=== PATIENT | female | born 1940 | race Caucasian/White ===

== ENCOUNTER 2024-09-14 06:03 | Inpatient (IN) | payer OTHER, SELFPAY ==
[2024-08-18 14:28] VITALS: BMI 30.9
[2024-08-18 15:04] LABS: Hematocrit 40.1 % (37.0-47.0); Hemoglobin 13.3 g/dL (12.0-16.0); Mean Corp Hgb Conc. 33.2 g/dL (33.0-37.0); Mean Corpuscular Volume 93.5 fL (81.0-99.0); Mean Platelet Volume 10.8 fL (7.4-10.4); Platelet Count 206 10^3/uL (130-400); Red Blood Cell Count 4.29 10^6/uL (4.20-5.40); Red Cell Dist. Width 12.5 % (11.5-14.5); White Blood Cell Count 7.3 10^3/uL (4.8-10.8)
[2024-08-18 15:34] LABS: ALT (SGPT) 16 U/L (0-35); AST (SGOT) 27 U/L (14-36); Albumin 4.2 g/dl (3.5-5.0); Alkaline Phosphatase 93 U/L (38-126); Blood Urea Nitrogen 26 mg/dl (7-17); Calcium 9.4 mg/dl (8.4-10.2); Carbon Dioxide 32 mmol/L (22-30); Chloride 96 mmol/L (98-107); Estimated Creatinine Clearance 38 ml/min; Glucose 102 mg/dl (70-99); Potassium 3.2 mmol/L (3.5-5.1); Sodium 138 mmol/L (135-145); Total Bilirubin 0.9 mg/dl (0.2-1.3); Total Protein 7.2 g/dl (6.3-8.2)
[2024-08-19 08:32] LABS: Glycohemoglobin (HgbA1c) 5.6 % (4.0-5.6)
--- NOTE | 2024-09-07 11:54 | PTCARENOTE ---
Patients 08/18 Potassium 3.2, GFR 40.8- emailed Mikayla @ Dr. Corley office
[2024-09-08 11:34] VITALS: BMI 30.9
--- NOTE | 2024-09-08 13:24 | VNURNOTE ---
[facility] liaison rec'ed info from PAT that patient interested in VN after CHETAN R TKA on 09/14. She will have a CM at who will assess DC dispo/plan.
Plan: [facility] liaison to follow up after CM assesses post-op. [facility] referral in [facility] status in [facility].
--- NOTE | 2024-09-08 15:58 | PTCARENOTE ---
Patients 08/18 Potassium 3.2; reviewed by Dr. Lenz- no additional interventions required
[2024-09-14] VITALS (22 sets, daily range): BP systolic 114–181; BP diastolic 58–108; PULSE 82; O2SAT 97; BMI 30.9
[2024-09-14] MEDS: TYLENOL 650 MG PO (06:25)
[2024-09-14] MEDS: BACTROBAN NASAL 1 GRAM NASAL (06:27)
[2024-09-14] MEDS: NORMOSOL-R/PLASMALYTE-A 1000 IV (06:47)
--- NOTE | 2024-09-14 09:38 | OR.RPT ---
Operative Report
Operative Report
Orthopaedic Surgery Operative Note
DATE OF OPERATION: 09/14/2024
PREOPERATIVE DIAGNOSES: Osteoarthritis, right knee.
POSTOPERATIVE DIAGNOSES: Osteoarthritis, right knee.
OPERATION PERFORMED:
1) Right total knee arthroplasty (CPT 55317)
2) Intraosseous administration of analgesic (CPT 91512)
SURGEON: Puma Watson MD
ASSISTANTS: Minesh Sam PA-C who helped with patient and limb positioning and retraction
ANESTHESIA: General anesthesia by anesthesia team plus intraoperative infusion of morphine into the tibial metaphysis by Dr. Watson
COMPLICATIONS: None.
ESTIMATED BLOOD LOSS: 20mL
DRAINS: None
TOURNIQUET TIME: 47 minutes.
IMPLANTS:
- Betty Persona CR Femur, size 9
- Betty Persona tibia base plate, size D
- Betty Persona medial constrained articular surface, 10 mm
- All-polyethylene patellar component, size 29
- DJO [place] bone cement
INDICATIONS: The patient presented to my office with debilitating right knee pain due to osteoarthritis. We reviewed the natural history of this problem, as well as the risks, benefits, and alternatives of various treatment options. The patient
exhausted all nonoperative treatment options and wished to proceed with knee replacement surgery. The patient understood the risks which included, but were not limited to, bleeding, infection, failure to relieve pain, more pain than preop, damage to
blood vessels and nerves, need for reoperation, mechanical failure of the implants, wound healing problems, stiffness, instability, blood clot, pulmonary embolism, myocardial infarction, pneumonia, arrhythmia, CVA, and . The patient accepted
these risks and wished to proceed. All questions were answered, and informed consent was obtained.
PROCEDURE IN DETAIL: The patient was identified in the preoperative holding area. The right knee was identified as the operative site. The patient was taken in the operating room and placed in a supine position on the operating table. General
anesthesia was performed. IV antibiotics and tranexamic acid were administered. An SCD was placed on the left lower extremity. A well-padded tourniquet was placed on the proximal thigh. All bony prominences were well padded. The right lower
extremity was prepped and draped in the usual sterile fashion.
We performed a surgical time-out. An interarticular block was performed with local anesthetic with epinephrine. The limb was exsanguinated with an Esmarch bandage, then the tourniquet was inflated to 250 mmHg. I performed interosseous administration
of morphine-saline solution via a Jamshidi style intraosseous needle into the proximal medial tibial metaphysis as described by Ian Dumont MD. This was performed to aid in pain control. A midline skin incision was made followed by a medial
parapatellar arthrotomy. A subperiosteal peel was performed on the medial tibia. I excised part of the infrapatellar fat pad to improve our visualization as well as tissue over anterior femur. The patella was everted and the knee was flexed. I
excised the remnants of the anterior and posterior cruciate ligaments as well as tibial and femoral osteophytes with rongeurs.
The knee was flexed, and the extramedullary tibial cutting guide was aligned. [place] was aligned at neutral, rotation was centered on the tibial tubercle, and coronal alignment was aligned with the mechanical axis of the tibia and center of the ankle
joint. The cut height was 2mm off the lateral tibia joint surface due to valgus. The guide was secured into place. The MCL and LCL were protected. The tibia surface was cut. The cut surface was inspected after removal to ensure appropriate height
and slope based on the preoperative plan. The cut was checked with a drop racheal. It was centered nicely at the ankle.
A drill was used to open the femoral canal. The intramedullary distal femoral cutting guide was inserted into the femur. This was set at 5 degrees +0. This was secured into place with three pins. The cut level was checked with an elvin wing. The
distal femur was cut through the cutting guide. The IM guide was reinserted to double check that the level of resection was flush and in appropriate alignment.
[place]�s line and the transepicondylar axis were marked on the femur. The femoral sizing guide was applied to the anterior femur. Pins were inserted, and the 4-in-1 cutting guide was applied and secured into place. The rotation was compared to
[place]�s line, the transepicondylar axis, and the neutral tibia cut and was found to be appropriate. The width was checked and found to be appropriate and lateralized on the femur. The anterior, posterior, and chamfur cuts were made. A lamina
doctor assistant was used to open the flexion gap, and posterior osteophytes were removed with a curved osteotome. The remnant medial and lateral meniscus were also removed. I prophylactically cauterized the lateral geniculate arteries. A 10mm spacer block
was applied to the flexion gap and was noted to be balanced medially and laterally. The knee was extended, and the block showed symmetric to extension and flexion gaps.
The tibia was exposed and sized. Rotation was set in line with the tibial tubercle and congruent with the femur. The trial was secured into place with two pins. The trial femur was impacted into place, and a trial articular surface was placed. The
knee was taken through range of motion and noted to be stable throughout the arc of motion without gaping or excess tension. In extension, a measured resection of the patella was performed. The patella was sized, and lug holes were drilled. A trial
patella component was applied, and it was noted to track centrally throughout the arc of motion without need for further releases.
The trials were removed. The tibia keel was prepared with the punch and the drill. The bone surfaces were irrigated with sterile saline and dried. The cement was mixed in a vacuum mixer. Cement gun was used to apply cement to the tibial surface and
the undersurface of the tibial implant. Cement was pressurized into the tibial canal and tibia surface. The tibial component was impacted into place. Excess cement was removed. Cement was applied to the femoral surface and the femoral component. The
femoral component was impacted into place, and excess cement removed. A trial articular surface was inserted, and the knee was extended while the cement polymerized. The tourniquet was let down, and meticulous hemostasis was achieved. Dilute
betadine was poured into the wound and allowed to soak for 3 minutes. The knee was irrigated with copious normal saline.
Once the cement was polymerized, the trial articular surface was removed. Any excess cement was removed. The knee was trialed, and the final articular surface was selected and inserted into the tibial locking mechanism. The knee was reduced. A fresh
drape was applied to the surgical field.
The arthrotomy was closed with 0-PDS. Once closed, an interarticular block was performed with local anesthetic with epi. The deep dermal layer was closed with 2-0 PDS, and the subcuticular skin was closed with 3-0 monocryl. A Dermabond Prineo
dressing was applied to the skin in full flexion. Once this was completely dry, a sterile waterproof dressing was applied.
The anesthesia team performed an adductor canal block in the OR. The patient awoke from anesthesia without any difficulties. The sponge and instrument counts were correct x2 at the end of the case.
Moises Watson MD
[2024-09-14] MEDS: DILAUDID 0.5 MG IV ×2 (09:39→10:42)
[2024-09-14] MEDS: DEMEROL 12.5 MG IV (10:00)
[2024-09-14] MEDS: ATIVAN 0.5 MG IV (11:55)
[2024-09-14] MEDS: TORADOL 15 MG IV (12:22)
--- NOTE | 2024-09-14 12:45 | W.PN.ORTHO ---
Today's Communication / Plan
-
Monitor pain.
D/c when clinically stable.
Assessment
.
Distal Motor Intact: Yes
Dressing:
Clean, dry and intact.
Assessment:
R knee OA s/p R TKA w/ Dr Watson 09/14/24
- s/p L TKA, 2009, at outside facility
DVT prophylaxis - ASA, b/l venous foot pumps
R knee 'tightness' - responding well to IV Ativan in PACU - will order PO
- Tramadol for mild pain, Tylenol #3 for mod-severe pain
- Prednisone taper for inflammation
- Lidocaine for localized pain relief
- CKD so minimize NSAIDs. Also will be cautious given her previous ADRs
HTN - + parameters - monitor BP
PAF/AT/PVCs - monitor on tele
- Continue BB
- No current OAC
CKD - minimize nephrotoxins
GERD - continue PPI therapy
Ambulatory dysfunction w/ balance difficulties - fall precautions
- Await PT and OT recs; possible SNF?
Mild hypokalemia - repeat potassium tonight
- Hold diuretic for now
HLD, statin intolerant
Mild valvular disease
Venous varicosities, status post stripping
Chronic SAGE, likely multifactorial
DDD
Hypothyroidism
PMR
Glaucoma
Osteoporosis
Anxiety/depression
Insomnia
Obesity, BMI 30.9
Plan
.
Surgery / Date: R TKA w/ Dr Watson 09/14/24
DVT Prophylaxis: Aspirin
Activity:
Out of bed.
PT/OT
Discharge Plan: Home w/ VN (vs SNF)
Subjective
.
.:
Patient examined while recovering in PACU.
Reporting 10/10 knee pain - described as tightness.
Denies any other new complaints.
Vital Signs and Labs
.
Vital Signs and Labs:
Lab Results
01/22/25 12:38
Temp Pulse Resp BP Pulse Ox
97.5 F 99 21 144/77 100
09/14/24 09:20 09/14/24 09:20 09/14/24 09:20 09/14/24 09:20 09/14/24 09:20
Physical Exam
-
HEENT: No pallor, cyanosis, or jaundice. Throat clear.
NECK: Supple. No JVD.
RESPIRATORY: Lungs clear to auscultation.
CVS: S1, S2 normal. RRR.�
ABDOMEN: Soft, non-tender. No distension. Obese.
EXTREMITIES: Strength equal, no calf pain with palpation/dorsiflexion. Calves soft.
COMPONENT OVERHAUL OPERATOR: AOx3. No focal deficits. wood heel attacher grossly intact
[2024-09-14] MEDS: NSS 1000 IV (13:06)
[2024-09-14] MEDS: TENORMIN 25 MG PO (13:40)
[2024-09-14] MEDS: TYLENOL #3 2 TABLET PO (14:14)
[2024-09-14] MEDS: VITAMIN D3 (cholecalciferol) 50 MCG PO (14:15)
[2024-09-14] MEDS: PROTONIX 40 MG PO (14:15)
[2024-09-14] MEDS: LIDOCAINE 4% PATCH 2 PATCH TOPICAL (15:49)
[2024-09-14] MEDS: DELTASONE 40 MG PO (17:50)
[2024-09-14] MEDS: ULTRAM 50 MG PO ×2 (17:51→22:19)
[2024-09-14] MEDS: ASPIRIN 325 MG PO (17:51)
[2024-09-14] MEDS: ANCEF 5 IV (17:51)
[2024-09-14 18:30] LABS: Potassium 4.8 mmol/L (3.5-5.1)
--- NOTE | 2024-09-14 20:26 | PTCARENOTE ---
Pt arrived to unit aprox 1330 from PACU in bed. Pt admission and assessment done. Pt with 9/10 pain to right knee, Ice applied. Pain medication given. Instructed pt to ring for assistance.
[2024-09-14] MEDS: TYLENOL #3 1 TABLET PO (20:40)
[2024-09-14] MEDS: BACTROBAN 2% OINTMENT 1 APPLIC NASAL (20:42)
[2024-09-14] MEDS: COLACE 100 MG PO (20:42)
[2024-09-14] MEDS: SENOKOT 17.2 MG PO (20:42)
[2024-09-14] MEDS: ATIVAN 0.5 MG PO (20:50)
[2024-09-14] MEDS: CELEXA 20 MG PO (20:51)
[2024-09-15 03:00] VITALS: BP 156/76
[2024-09-15] MEDS: ANCEF 5 IV (03:14)
[2024-09-15] MEDS: TYLENOL #3 1 TABLET PO (03:18)
[2024-09-15] MEDS: SYNTHROID 125 MCG PO (05:24)
--- NOTE | 2024-09-15 06:16 | DOWNTIME ---
There was a Typeform Client Gutter Mouth Cutter Downtime on 09/15/2024 from 0100 to 09/15/2023 at 0235 . Downtime documentation of patient's care, including medication administrations, has been reconciled in the electronic record per guidelines. Refer to the
patient's paper chart under the miscellaneous tab to see printed paper medication records and downtime forms.
[2024-09-15 07:30] VITALS: BP 160/70
[2024-09-15] MEDS: ASPIRIN 325 MG PO (07:54)
[2024-09-15] MEDS: COLACE 100 MG PO (07:54)
[2024-09-15] MEDS: DELTASONE 40 MG PO (07:54)
[2024-09-15] MEDS: SENOKOT 17.2 MG PO (07:54)
[2024-09-15] MEDS: ULTRAM 50 MG PO ×2 (07:54→14:02)
[2024-09-15] MEDS: LIDOCAINE 4% PATCH 2 PATCH TOPICAL (07:55)
[2024-09-15] MEDS: PROTONIX 40 MG PO (07:55)
[2024-09-15] MEDS: VITAMIN D3 (cholecalciferol) 50 MCG PO (07:55)
[2024-09-15] MEDS: TENORMIN 25 MG PO (07:55)
[2024-09-15] MEDS: BACTROBAN 2% OINTMENT 1 APPLIC NASAL (07:56)
[2024-09-15 08:58] VITALS: BP 144/70; BP 144/71; PULSE 71; O2SAT 94
--- NOTE | 2024-09-15 09:34 | W.PN.ORTHO ---
Today's Communication / Plan
-
Await to hear from CM re: bed situation at SNF.
D/c when clinically stable.
Assessment
.
Distal Motor Intact: Yes
Dressing:
Clean, dry and intact.
Assessment:
R knee OA s/p R TKA w/ Dr Watson 09/14/24
- s/p L TKA, 2009, at outside facility
DVT prophylaxis - ASA, b/l venous foot pumps
R knee 'tightness' - responding well to IV Ativan in PACU - continue PO BIDPRN
- Tramadol for mild pain, Tylenol #3 for mod-severe pain
- Prednisone taper for inflammation
- Lidocaine for localized pain relief
- CKD so minimize NSAIDs. Also will be cautious given her previous ADRs
- Pain better tolerated by POD 1
HTN - + parameters - BPs initially elevated 2* pain but overall improving
- Diuretic initially held but can be resumed upon d/c w/ SBP parameters given improvement in potassium
PAF/AT/PVCs - maintaining NSR on tele
- Continue BB
- No current OAC
CKD - continue to minimize nephrotoxins
GERD - continue PPI therapy
Ambulatory dysfunction w/ balance difficulties - fall precautions
- PT and OT recommending SNF
Mild hypokalemia pre-op - 'normal for me' per pt - potassium improved to 4.8 post-op
HLD, statin intolerant
Mild valvular disease
Venous varicosities, status post stripping
Chronic SAGE, likely multifactorial
DDD
Hypothyroidism
PMR
Glaucoma
Osteoporosis
Anxiety/depression
Insomnia
Obesity, BMI 30.9
Plan
.
Surgery / Date: R TKA w/ Dr Watson 09/14/24
DVT Prophylaxis: Aspirin
Activity:
Out of bed.
PT/OT
Discharge Plan: SNF
Subjective
.
.:
Patient resting comfortably in her chair.
R knee pain 'much better' in comparison to yesterday. She reports 'I'm satisfied' in comparison to her previous TKA.
Denies any new significant complaints.
Potassium improved to 4.8 last night.
Vital Signs and Labs
.
Vital Signs and Labs:
Lab Results
08/18/24 12:38
09/14/24 18:07
Temp Pulse Resp BP Pulse Ox
97.5 F 77 18 160/70 94
09/15/24 07:30 09/15/24 07:30 09/15/24 07:30 09/15/24 07:30 09/15/24 08:12
Physical Exam
-
HEENT: No pallor, cyanosis, or jaundice. Throat clear.
NECK: Supple. No JVD.
RESPIRATORY: Lungs clear to auscultation.
CVS: S1, S2 normal. RRR.�
ABDOMEN: Soft, non-tender. No distension. Obese.
EXTREMITIES: Expected post-surgical R knee edema. Strength equal, no calf pain with palpation/dorsiflexion.
PHOTOGRAPHIC MACHINE OPERATOR: AOx3. No focal deficits. mental health worker grossly intact
[2024-09-15] MEDS: TYLENOL #3 2 TABLET PO (09:55)
--- NOTE | 2024-09-15 10:29 | W.PN.UPDATE ---
Update Note
Progress Note Update
Scripts for Tramadol, Tylenol #3, and Lorazepam printed and placed in back of patient's chart.
--- NOTE | 2024-09-15 10:51 | CM ---
Addendum entered by Savannah Velez 09/15/24 11:18:
2:30pm transport - Sara liaison from [place] notified.
Original Note:
Patient seen at bedside.
IMM signed yesterday. In chart
IA completed
Lives alone in an apartment, no steps
PLOF: Independent, cane outside of apt
DME: Cane, walker
Has been at [facility] in past, denies HH
PT/OT rec SNF
Prefers [facility], Sara Burkett states has a bed.
[facility] NPI #: [id number]
Dr. Briseyda Patiño NPI #: [id number]
AUTHORIZATION APPROVED for [facility]. Auth #: [id number]
Start date 09/15/24--6 days--NRD 09/20/25
Call with updates at [phone]
PCP: Wilton Johnston
Pharmacy: [facility]
PLAN: [facility] SNF today
Report #: [phone]
Fax #: [phone]
transportation forms on chart
--- NOTE | 2024-09-15 10:56 | W.DS.TRANS ---
DC Summary - Mortgage Loan Counselor
-
Discharge Instructions:
Sleep Apnea Risk Low
Discharge Diagnosis/Procedures R knee OA s/p R TKA w/ Dr Watson 09/14/24
Diet Regular
Activity As tolerated,With Walker
Driving Restrictions Not until seen by your Dr
Bathing Restrictions OK to Shower
Other Services PT,OT
Wound Care Leave dressing on until seen by surgeon's office
for follow-up in 2 weeks.
Instructions:
Stand-Alone Forms: Total Hip/Knee Replacement D/C
Changes to Home Medications: Yes
Discharge Medications:
DC Medications w/original date entered in [facility]
atenolol 25 mg tablet 25 mg PO DAILY 04/13/20
citalopram 20 mg tablet 20 mg PO HS 04/13/20
cholecalciferol (vitamin D3) 50 mcg (2,000 unit) capsule (Vitamin D3) 50 mcg PO DAILY 09/08/24
levothyroxine 125 mcg tablet 125 mcg PO DAILY 09/08/24
quetiapine 25 mg tablet (Seroquel) 25 mg PO HS PRN sleep 09/08/24
acetaminophen 300 mg-codeine 30 mg tablet 1 - 2 tab PO Q4HPRN PRN moderate-severe pain #15 tabs 09/15/24
acetaminophen 325 mg tablet 650 mg (2 x 325 mg) PO Q4HPRN PRN mild pain #60 tabs 09/15/24
aspirin 325 mg tablet 325 mg PO DAILY #30 tabs 09/15/24
chlorthalidone 25 mg tablet 12.5 mg (1/2 x 25 mg) PO DAILY #0 tabs 09/15/24
docusate sodium 100 mg capsule 100 mg PO BID #30 caps 09/15/24
lidocaine 4 % topical patch 2 patch topical DAILY #30 ea 09/15/24
lorazepam 0.5 mg tablet 0.5 mg PO BIDPRN PRN muscle spasms #10 tabs 09/15/24
omeprazole 40 mg capsule,delayed release 40 mg PO DAILY #0 caps 09/15/24
prednisone 10 mg tablet 30 mg (3 x 10 mg) PO TAPER #12 tabs 09/15/24
prochlorperazine maleate 5 mg tablet 5 mg PO Q6HPRN PRN nausea/vomiting #30 tabs 09/15/24
sennosides 8.6 mg tablet (Mildred-mercedez) 17.2 mg (2 x 8.6 mg) PO BID #30 tabs 09/15/24
tramadol 50 mg tablet 50 mg PO Q4HPRN PRN mild pain #15 tabs 09/15/24
Home Medication Changes
acetaminophen 300 mg-codeine 30 mg tablet 1 - 2 tab PO Q4HPRN PRN moderate-severe pain #15 tabs 09/15/24
acetaminophen 325 mg tablet 650 mg (2 x 325 mg) PO Q4HPRN PRN mild pain #60 tabs 09/15/24
aspirin 325 mg tablet 325 mg PO DAILY #30 tabs 09/15/24
docusate sodium 100 mg capsule 100 mg PO BID #30 caps 09/15/24
lidocaine 4 % topical patch 2 patch topical DAILY #30 ea 09/15/24
lorazepam 0.5 mg tablet 0.5 mg PO BIDPRN PRN muscle spasms #10 tabs 09/15/24
omeprazole 40 mg capsule,delayed release 40 mg PO DAILY #0 caps 09/15/24
prednisone 10 mg tablet 30 mg (3 x 10 mg) PO TAPER #12 tabs 09/15/24
prochlorperazine maleate 5 mg tablet 5 mg PO Q6HPRN PRN nausea/vomiting #30 tabs 09/15/24
sennosides 8.6 mg tablet (Mildred-mercedez) 17.2 mg (2 x 8.6 mg) PO BID #30 tabs 09/15/24
tramadol 50 mg tablet 50 mg PO Q4HPRN PRN mild pain #15 tabs 09/15/24
Pending Results: No
[2024-09-15 11:40] VITALS: BP 152/81
== END 2024-09-15 14:56 | DRG 470 ==
LOC: 2 SOUTH 06:03
PROVIDERS: Physician Assistant; ADMITTING PHYSICIAN Orthopaedic Surgery; FAMILY PHYSICIAN Internal Medicine; REFERRING PHYSICIAN Internal Medicine Cardiovascular Disease
PROC: 0SRC069 Replacement of Right Knee Joint with Oxidized Zirconium on Polyethylene Synthetic Substitute, Cemented, Open Approach (ICD-10-PCS; 2024-09-14)
DX: M17.11 Unilateral primary osteoarthritis, right knee (principal); I47.19 Other supraventricular tachycardia; I12.9 Hypertensive chronic kidney disease with stage 1 through stage 4 chronic kidney disease, or unspecified chronic kidney disease; N18.30 Chronic kidney disease, stage 3 unspecified; I48.0 Paroxysmal atrial fibrillation; K21.9 Gastro-esophageal reflux disease without esophagitis; E87.6 Hypokalemia; E66.9 Obesity, unspecified; Z68.30 Body mass index [BMI] 30.0-30.9, adult; I49.3 Ventricular premature depolarization
CPT/HCPCS: 36415; 73560; 80053; 83036; 84132; 85027; 87070; 97163; 97166; 97530; 97535; C1713; C1776

== ENCOUNTER 2025-01-25 17:09 | Emergency (ER) | payer OTHER, SELFPAY ==
[2025-01-25 17:11] VITALS: BP 157/82
--- NOTE | 2025-01-25 19:41 | ED.GENMED ---
History of Present Illness
General
Chief Complaint: Bowel Problem
Source: patient
Exam Limitations: none
Time Seen by Provider: 01/25/25 19:29
History of Present Illness
History of Present Illness:
84yoF with a history of atrial fibrillation, hypertension, hypothyroidism, and chronic back pain on Tramadol presenting for evaluation of constipation. Patient has not had a bowel movement in the past 2 days. She reports rectal discomfort and
states she is impacted. She is so constipated that she is now having trouble urinating and has not urinated since this morning. Patient tried to disimpact herself at home without relief. She also tried a fleets enema but was not able to insert
the enema due to her impaction. She took mag citrate this afternoon but has not noticed any improvement. She denies any nausea or vomiting.
Past History
Past History
ED Past Medical History: Arrthythmia (Atrial fibrillation) and Other (Chronic back pain)
ED Past Surgical History: Orthopedic
Social History
Tobacco: Non-smoker
Alcohol: None
Drug: None
Phy Exam
General Physical Exam
General Presentation: well appearing and no apparent distress
General Skin: warm and dry
General Habitus: normal
General Mental: alert
ENT Exam
ENT Exam: normocephalic
Pulmonary Exam
Pulmonary Exam: no respiratory distress
Gastrointestinal Exam
Gastrointestinal Exam: soft, non distended and other (+Tenderness to suprapubic region)
Stool: other (Impaction noted with hard brown stool noted on digital rectal exam)
Neurological Exam
Neurological Exam: alert
Brandon Coma Scale
Eye Opening: Spontaneous
Verbal Response: Oriented
Motor Response: Obeys Commands
GCS Total Score: 15
Skin Exam
Skin Exam: normal color and warm/dry
Psychiatric Exam
Psychiatric Exam: normal mood/affect
Course
Orders/Labs/Results
Orders:
Orders
01/25/25 19:39
Bladder Scan- Treatment ONCE
Woodruff Placement- Treatment ONCE
Reason for insertion: Acute Retention
01/25/25 20:03
Complete Blood Count/With Diff Urgent
Comprehensive Metabolic Panel Urgent
Urinalysis Reflex To Culture Urgent
Date Specimen was Collected: 01/25/25
Time Specimen was Collected: 19:43
Abnormal Lab Results
01/25/25
20:03
RBC 4.12 L 10^6/uL
(4.20-5.40)
Absolute Neuts (auto) 7.7 H 10^3/uL
(1.4-6.5)
Absolute Lymphs (auto) 1.0 L 10^3/uL
(1.2-3.4)
Neutrophils % 81.3 H %
(42.2-75.2)
Lymphocytes % 10.5 L %
(20.5-51.1)
BUN 25 H mg/dl
(7-17)
Glucose 140 H mg/dl
(70-99)
01/25/25 20:03
01/25/25 20:03
Vital Signs
Initial and Last Documented VS:
Initial Vital Signs
Temp Pulse Resp BP Pulse Ox
97.8 F 71 16 157/82 98
01/25/25 17:11 01/25/25 17:11 01/25/25 17:11 01/25/25 17:11 01/25/25 17:11
Last Documented Vital Signs
Temp Pulse Resp BP Pulse Ox
97.8 F 80 20 161/82 100
01/25/25 17:11 01/25/25 22:34 01/25/25 22:34 01/25/25 22:34 01/25/25 22:34
MDM/Problems Addressed
Differential Diagnosis Includes:
84yoF here with constipation and now difficulty urinating. Has not urinated since this morning. VSS. She is well appearing in no distress. There is suprapubic tenderness and a fecal impaction noted on exam. Differential diagnosis includes: fecal
impaction, constipation, urinary retention, less likely diverticulitis
Initial ED plan: Check CBC, CMP, UA, and bladder scan.
*Pulse Oximetry
SaO2: 98
Oxygen Mode of Delivery: Room air
Patient hypoxic: no (100%)
*Critical Care Note
Total Time (30-74mins, 75-104mins- exclusive of procedures): Not Applicable
Update Note
Update Note:
Bladder scan >500cc and Woodruff catheter was placed with immediate return of about 600cc urine. Suprapubic tenderness resolved after catheter placement. Manual disimpaction performed with several hard stool pieces removed. Milk of molasses enema
ordered although prior to enema administration, patient reported feeling the urge to have a BM. Patient able to pass a large amount of stool. Abdominal exam repeated which is benign and she is feeling much better. She is stable for discharge.
Advised Miralax 1-2x daily as needed. Woodruff catheter removed prior to discharge. ED return precautions reviewed.
ED Attending Note
-
Portions of this chart may have been created with voice recognition software.� Occasional wrong word or��sound alike� substitutions may have occurred due to the inherent limitations of voice recognition software.
Discharge Plan
Departure
Patient Disposition: Home (Routine Discharge)
Date of Disposition: 01/25/25
Time of Disposition: 22:13
Patient with high blood pressure during this ER visit?: Yes
Discharge Problem:
Fecal impaction, Acute urinary retention
Instructions: Fecal Impaction (DC)
Prescriptions:
No Action
atenolol 25 MG tablet
25 mg PO DAILY
citalopram 20 MG tablet
20 mg PO HS
quetiapine [Seroquel] 25 mg Tablet
25 mg PO HS PRN (Reason: sleep)
levothyroxine 125 mcg Tablet
125 mcg PO DAILY
cholecalciferol (vitamin D3) [Vitamin D3] 50 mcg (2,000 unit) Capsule
50 mcg PO DAILY
aspirin 325 mg Tablet
325 mg PO DAILY Qty: 30 0RF
Rx Instructions:
Take daily x4 weeks for blood clot prevention.
lorazepam 0.5 mg Tablet
0.5 mg PO BIDPRN PRN (Reason: muscle spasms) Qty: 10 0RF
Rx Instructions:
Caution with narcotics - can cause drowsiness.
Take only as directed.
docusate sodium 100 mg Capsule
100 mg PO BID Qty: 30 0RF
prochlorperazine maleate 5 mg Tablet
5 mg PO Q6HPRN PRN (Reason: nausea/vomiting) Qty: 30 0RF
lidocaine 4 % Adhesive Patch,Medicated
2 patch topical DAILY Qty: 30 0RF
Rx Instructions:
Over the counter. 12 hours on, 12 hours off.
Apply to sides of right knee/thigh.
sennosides [Mildred-mercedez] 8.6 mg Tablet
17.2 mg PO BID Qty: 30 0RF
acetaminophen 325 mg Tablet
650 mg PO Q4HPRN PRN (Reason: mild pain) Qty: 60 0RF
Rx Instructions:
DO NOT exceed >4000 mg daily while on Tylenol with Codeine.
1 Tylenol with Codeine tab = 300 mg of Tylenol.
acetaminophen-codeine 300-30 mg Tablet
1 - 2 tab PO Q4HPRN PRN (Reason: moderate-severe pain) Qty: 15 0RF
Rx Instructions:
1 tab for moderate pain, 2 if severe.
Dx total joint.
tramadol 50 mg Tablet
50 mg PO Q4HPRN PRN (Reason: mild pain) Qty: 15 0RF
Rx Instructions:
Dx total joint.
prednisone 10 mg tablet
30 mg PO TAPER Qty: 12 0RF
Rx Instructions:
3 TABS X 2 DAYS, 2 TABS X 2 DAYS, 1 TAB X 2 DAYS, THEN STOP
chlorthalidone 25 mg Tablet
12.5 mg PO DAILY Qty: 0 0RF
Rx Instructions:
HOLD IF systolic blood pressure <130 while on post-surgical narcotics.
omeprazole 40 MG capsule,delayed release(DR/EC)
40 mg PO DAILY Qty: 0 0RF
Rx Instructions:
Take daily while on post-surgical pain meds to reduce GI upset.
Can take 2nd dose if needed.
Referrals:
Wilton Johnston MD [Family Provider, Internal Medicine]
Activity Restrictions/Additional Instructions:
Take Miralax 1-2x daily as needed for constipation.
Please follow-up with your family doctor. Return to the ER with any worsening symptoms, severe pain, fevers, or inability to urinate.
Interventions
Interventions:
*Risk Screen - Suicide Last Done: 01/25/25 17:14
*General Assessment Last Done: 01/25/25 20:09
*Neglect/Abuse Screening Last Done: 01/25/25 17:14
*ED- Fall Risk Assessment Last Done: 01/25/25 20:09
*ED COVID-19 Vaccine History Last Done: 01/25/25 20:09
*Nursing Disposition Last Done: 01/25/25 22:38
SW-Kdcubo-Vgdbrggzgq Assessment Last Done: 01/25/25 20:07
Discharge Date and Time
Discharge Date/Time: 01/25/25 22:39
Print Language: ALBANIAN
[2025-01-25 20:10] LABS: Hematocrit 37.0 % (37.0-47.0); Hemoglobin 12.7 g/dL (12.0-16.0); Mean Corp Hgb Conc. 34.3 g/dL (33.0-37.0); Mean Corpuscular Volume 89.8 fL (81.0-99.0); Nucleated Red Blood Cells % 0 %; Platelet Count 180 10^3/uL (130-400); Red Cell Dist. Width 12.5 % (11.5-14.5); Urine Character Clear (Clear)
[2025-01-25 20:30] LABS: ALT (SGPT) 17 U/L (0-35); AST (SGOT) 30 U/L (14-36); Albumin 4.7 g/dl (3.5-5.0); Alkaline Phosphatase 122 U/L (38-126); Blood Urea Nitrogen 25 mg/dl (7-17); Calcium 9.2 mg/dl (8.4-10.2); Carbon Dioxide 25 mmol/L (22-30); Chloride 103 mmol/L (98-107); Glucose 140 mg/dl (70-99); Potassium 3.5 mmol/L (3.5-5.1); Sodium 137 mmol/L (135-145); Total Protein 7.6 g/dl (6.3-8.2); eGFR 55.55
[2025-01-25 22:34] VITALS: BP 161/82
== END 2025-01-25 22:39 | disposition home or self-care (01) ==
LOC: EMR 17:09
PROVIDERS: Physician Assistant; EMERGENCY PHYSICIAN Emergency Medicine; FAMILY PHYSICIAN Internal Medicine
DX: R33.9 Retention of urine, unspecified (principal); K56.41 Fecal impaction; I48.91 Unspecified atrial fibrillation; I10 Essential (primary) hypertension; E03.9 Hypothyroidism, unspecified; M54.9 Dorsalgia, unspecified; G89.29 Other chronic pain; Z79.82 Long term (current) use of aspirin; Z88.6 Allergy status to analgesic agent; Z88.5 Allergy status to narcotic agent; Z88.2 Allergy status to sulfonamides; Z88.8 Allergy status to other drugs, medicaments and biological substances
CPT/HCPCS: 99284; 51798; 51702; 80053; 81003; 85025

== ENCOUNTER 2025-01-27 16:26 | Emergency (ER) | payer OTHER, SELFPAY ==
[2025-01-27 16:31] VITALS: BP 126/63
[2025-01-27 17:32] VITALS: BMI 34.4
[2025-01-27 17:33] VITALS: BP 128/71
[2025-01-27 18:56] VITALS: BP 155/77
[2025-01-27 19:09] LABS: Urine Character Clear (Clear)
--- NOTE | 2025-01-27 19:18 | ED.GENMED ---
Addendum entered and electronically signed by Adam Zavala PA-C 01/30/25 09:51:
UCx positive, C&S pending, on cephalexin
Original Note:
History of Present Illness
General
Chief Complaint: Urinary Symptoms
Source: patient
Exam Limitations: none
Time Seen by Provider: 01/27/25 17:50
Nursing documentation reviewed up to this point in time: agreed with
History of Present Illness
History of Present Illness:
Patient seen in ED 2 days ago secondary to severe constipation which caused urinary retention, presents to ED secondary to dysuria over the past 24 hours. Patient states that she has had number of similar symptoms in the past, treated with
antibiotics. Denies fever or chills. Denies nausea or vomiting. Denies abdominal pain. Denies loss of appetite. Patient states that she is having normal bowel movements now.
Past History
Past History
ED Past Medical History: Arrthythmia (Atrial fibrillation) and Other (Chronic back pain)
ED Past Surgical History: Orthopedic
Social History
Tobacco: Non-smoker
Alcohol: None
Drug: None
Review of Systems
Review of Systems
Allergies reviewed?: Yes
All Other Systems: ROS reviewed and negative except as documented in HPI and ROS
Constitutional: Reports no symptoms
ABD/GI: Reports no symptoms; Denies abdominal pain or vomiting
: Reports dysuria
Musculoskeletal: Reports no symptoms
Skin: Reports no symptoms
Neurological: Reports no symptoms
Phy Exam
Physical Exam
Physical Exam:
Physical Exam
General: no apparent distress, not acutely ill. afebrile
Head: nc/at. eomi
Neck: supple. no meningeal signs.
Abdomen: normal bowel sounds. not tender.
Neuro: alert and oriented x 3. no focal neurological deficits
Skin: no rash
Psychiatric: well kept. interactive and cooperative
Extremities: no edema. no calf tenderness.
Course
Orders/Labs/Results
Orders:
Orders
01/27/25 18:50
Urinalysis Reflex To Culture Urgent
Date Specimen was Collected: 01/27/25
Time Specimen was Collected: 18:48
Urine Microscopic Reflex Cult Urgent
Urine Culture Urgent
ИВАН Source: U
Specimen Description:
Date Specimen was Collected: 01/27/25
Time Specimen was Collected: 18:48
01/27/25 19:17
Cephalexin Monohydrate [Keflex] 250 mg PO NOW STA
01/27/25 19:22
Phenazopyridine HCl [Pyridium] 100 mg PO NOW STA
Abnormal Lab Results
01/27/25
18:50
Ur Occult Blood Reflex 4+ A
(Negative)
Urine Nitrite (Reflex) Positive A
(Negative)
Leukocyte Esterase Rfl 3+ A
(Negative)
Urine RBC 7-10 A /HPF
(0-2)
Urine WBC (Reflex) 70-80 A /HPF
(0-5)
Urine Bacteria (Reflex) Many A
(Negative)
Urine Albumin (Reflex) 2+ A
(Neg - Trace)
Vital Signs
Initial and Last Documented VS:
Initial Vital Signs
Temp Pulse Resp BP Pulse Ox
99.0 F 66 18 126/63 94
01/27/25 16:31 01/27/25 16:31 01/27/25 16:31 01/27/25 16:31 01/27/25 16:31
Last Documented Vital Signs
Temp Pulse Resp BP Pulse Ox
98.8 F 68 18 155/77 99
01/27/25 18:56 01/27/25 18:56 01/27/25 18:56 01/27/25 18:56 01/27/25 19:18
MDM/Problems Addressed
MDM/Problems Addressed:
History, exam, and urinalysis consistent with urinary tract infection. As such, patient will be started on Keflex x 5 days, along with recommendation to follow-up PCP for reevaluation.
*Pulse Oximetry
SaO2: 99
Oxygen Mode of Delivery: Room air
Patient hypoxic: no
*Critical Care Note
Total Time (30-74mins, 75-104mins- exclusive of procedures): Not Applicable
ED Attending Note
-
Portions of this chart may have been created with voice recognition software.� Occasional wrong word or��sound alike� substitutions may have occurred due to the inherent limitations of voice recognition software.
Discharge Plan
Departure
Patient Disposition: Home (Routine Discharge)
Date of Disposition: 01/27/25
Time of Disposition: 19:20
Patient with high blood pressure during this ER visit?: Yes
Condition: Good
Discharge Problem:
Acute UTI
Instructions: Urinary Tract Infection, Adult (DC)
Prescriptions:
New
cephalexin 250 mg capsule
250 mg PO Q8H Qty: 14 0RF
phenazopyridine [Pyridium] 100 mg tablet
100 mg PO TID PRN (Reason: Pain) Qty: 14 0RF
No Action
atenolol 25 MG tablet
25 mg PO DAILY
citalopram 20 MG tablet
20 mg PO HS
quetiapine [Seroquel] 25 mg Tablet
25 mg PO HS PRN (Reason: sleep)
levothyroxine 125 mcg Tablet
125 mcg PO DAILY
cholecalciferol (vitamin D3) [Vitamin D3] 50 mcg (2,000 unit) Capsule
50 mcg PO DAILY
aspirin 325 mg Tablet
325 mg PO DAILY Qty: 30 0RF
Rx Instructions:
Take daily x4 weeks for blood clot prevention.
lorazepam 0.5 mg Tablet
0.5 mg PO BIDPRN PRN (Reason: muscle spasms) Qty: 10 0RF
Rx Instructions:
Caution with narcotics - can cause drowsiness.
Take only as directed.
docusate sodium 100 mg Capsule
100 mg PO BID Qty: 30 0RF
prochlorperazine maleate 5 mg Tablet
5 mg PO Q6HPRN PRN (Reason: nausea/vomiting) Qty: 30 0RF
lidocaine 4 % Adhesive Patch,Medicated
2 patch topical DAILY Qty: 30 0RF
Rx Instructions:
Over the counter. 12 hours on, 12 hours off.
Apply to sides of right knee/thigh.
sennosides [Mildred-mercedez] 8.6 mg Tablet
17.2 mg PO BID Qty: 30 0RF
acetaminophen 325 mg Tablet
650 mg PO Q4HPRN PRN (Reason: mild pain) Qty: 60 0RF
Rx Instructions:
DO NOT exceed >4000 mg daily while on Tylenol with Codeine.
1 Tylenol with Codeine tab = 300 mg of Tylenol.
acetaminophen-codeine 300-30 mg Tablet
1 - 2 tab PO Q4HPRN PRN (Reason: moderate-severe pain) Qty: 15 0RF
Rx Instructions:
1 tab for moderate pain, 2 if severe.
Dx total joint.
tramadol 50 mg Tablet
50 mg PO Q4HPRN PRN (Reason: mild pain) Qty: 15 0RF
Rx Instructions:
Dx total joint.
prednisone 10 mg tablet
30 mg PO TAPER Qty: 12 0RF
Rx Instructions:
3 TABS X 2 DAYS, 2 TABS X 2 DAYS, 1 TAB X 2 DAYS, THEN STOP
chlorthalidone 25 mg Tablet
12.5 mg PO DAILY Qty: 0 0RF
Rx Instructions:
HOLD IF systolic blood pressure <130 while on post-surgical narcotics.
omeprazole 40 MG capsule,delayed release(DR/EC)
40 mg PO DAILY Qty: 0 0RF
Rx Instructions:
Take daily while on post-surgical pain meds to reduce GI upset.
Can take 2nd dose if needed.
Referrals:
Wilton Johnston MD [Family Provider, Internal Medicine]
Activity Restrictions/Additional Instructions:
As discussed, please follow-up with your primary care physician for with any further concerns. Your prescription has been sent electronically to [facility] pharmacy in [place].
Interventions
Interventions:
*Risk Screen - Suicide Last Done: 01/27/25 16:33
*General Assessment Last Done: 01/27/25 17:33
*Neglect/Abuse Screening Last Done: 01/27/25 17:33
*Nursing Disposition Last Done: 01/27/25 19:35
ED-Female Genitourinary Assessment Last Done: 01/27/25 17:34
Discharge Date and Time
Discharge Date/Time: 01/27/25 19:38
Print Language: DANISH
[2025-01-27 19:25] LABS: Urine Squamous Cell 16-20 /LPF (Few); Urine White Cell 70-80 /HPF (0-5)
[2025-01-27] MEDS: KEFLEX 250 MG PO (19:29)
== END 2025-01-27 19:38 | disposition home or self-care (01) ==
LOC: EMR 16:26
PROVIDERS: EMERGENCY PHYSICIAN Emergency Medicine; FAMILY PHYSICIAN Internal Medicine
DX: N39.0 Urinary tract infection, site not specified (principal); I48.91 Unspecified atrial fibrillation
CPT/HCPCS: 99282; 81003; 81015; 87077; 87086; 87186

== ENCOUNTER 2025-01-31 10:31 | Emergency (ER) | payer OTHER, SELFPAY ==
[2025-01-31 10:43] VITALS: BP 136/66
[2025-01-31 11:15] VITALS: BP 120/54
[2025-01-31 11:26] LABS: Hematocrit 35.4 % (37.0-47.0); Hemoglobin 11.7 g/dL (12.0-16.0); Mean Corp Hgb Conc. 33.1 g/dL (33.0-37.0); Mean Corpuscular Volume 91.0 fL (81.0-99.0); Nucleated Red Blood Cells % 0 %; Platelet Count 194 10^3/uL (130-400); Red Cell Dist. Width 12.9 % (11.5-14.5)
--- NOTE | 2025-01-31 11:31 | ED.GENMED ---
History of Present Illness
General
Chief Complaint: Swelling
Source: patient and records
Exam Limitations: none
Time Seen by Provider: 01/31/25 11:18
Nursing documentation reviewed up to this point in time: agreed with except (See below)
History of Present Illness
History of Present Illness:
84-year-old female with a past medical history of atrial fibrillation not on anticoagulation, hypertension, chronic back pain, GERD, IBS who presents to the emergency department for evaluation of swelling in the legs and palpitations. Of note
patient was seen in this emergency room a few days ago for constipation and then subsequently seen for urinary symptoms and started on Keflex for UTI�she continues to take antibiotic and generally the symptoms have improved. She presents today to
the emergency room for evaluation of swelling in the legs that she says have developed over the past few days. She says initially noted in the ankles but now she notes swelling of the lower legs bilaterally. Denies any leg pain or skin changes.
She also reports that she has had occasional palpitations over that period of time. She says that she was concerned because although she has a history of A-fib she has not had an episode in quite some time and this prompted her to finally come to
the ER to be evaluated. Triage note mentions dyspnea on exertion�patient denies significant dyspnea to me. She denies any chest pain. She denies any dizziness or lightheadedness.. Her chair lift operator is Dr. William.
Past History
Past History
ED Past Medical History: Arrthythmia (Atrial fibrillation) and Other (Chronic back pain)
ED Past Surgical History: Orthopedic
Social History
Tobacco: Non-smoker
Alcohol: None
Drug: None
Review of Systems
Review of Systems
All Other Systems: ROS reviewed and negative except as documented in HPI and ROS
Constitutional: Denies fever
Respiratory: Denies cough or trouble breathing
Cardiac: Reports palpitations; Denies chest pain
ABD/GI: Denies abdominal pain, nausea, vomiting or constipated (Improved)
: Denies dysuria (Improved) or flank pain
Musculoskeletal: Reports edema; Denies neck pain
Neurological: Denies dizzy or headache
Phy Exam
Physical Exam
Physical Exam:
General: Awake, alert, oriented x3; no acute distress
Head: Normocephalic, atraumatic
Eyes: Conjunctiva normal, EOMI
Throat: Airway intact, handling secretions
Neck: Trachea midline, no JVD
Lungs: Clear to auscultation bilaterally, no wheezing, rales, rhonchi
Heart: Regular rate and rhythm, no murmurs, gallops, or rubs
Abd: Soft, non distended, nontender
Neuro: No gross deficit
Skin: no rash or skin changes noted in the legs
Extremities: Patient has trace edema around the lower legs and ankles bilaterally with no calf tenderness, strong pulses throughout, no skin changes
Scores
Heart Failure Risk
Heart Failure Risk Score: Not Applicable
Heart Score for Chest Pain Patients
STEMI patient?: Not applicable
Withdrawal Assessment of Alcohol
Withdrawal Assessment Completed?: Not applicable
Course
Orders/Labs/Results
Orders:
Orders
01/31/25
Electrocardiogram (*1) Stat
Reason for Study: Chest Pain
Comment: DONE
01/31/25 10:46
CR Chest - 2 Views Urgent
Comment:
Reason For Exam: respiratory distress
01/31/25 11:16
Complete Blood Count/With Diff Urgent
Comprehensive Metabolic Panel Urgent
NT-proBNP Urgent
Troponin I Urgent
01/31/25 11:32
D-Dimer Urgent
01/31/25 12:16
US Periph Venous LOWER Ext [place] Urgent
Comment:
Reason For Exam: leg swelling, +dimer
Abnormal Lab Results
01/31/25 01/31/25
11:16 11:32
RBC 3.89 L 10^6/uL
(4.20-5.40)
Hgb 11.7 L g/dL
(12.0-16.0)
Hct 35.4 L %
(37.0-47.0)
Absolute Lymphs (auto) 1.1 L 10^3/uL
(1.2-3.4)
Lymphocytes % 17.7 L %
(20.5-51.1)
D-Dimer 1.68 H ug/mlFEU
(0.00-0.50)
Creatinine 1.1 H mg/dL
(0.6-1.0)
01/31/25 11:16
01/31/25 11:16
Vital Signs
Initial and Last Documented VS:
Initial Vital Signs
Temp Pulse Resp BP Pulse Ox
36.8 C 62 16 136/66 98
01/31/25 10:43 01/31/25 10:43 01/31/25 10:43 01/31/25 10:43 01/31/25 10:43
Last Documented Vital Signs
Temp Pulse Resp BP Pulse Ox
36.8 C 61 13 120/54 98
01/31/25 10:43 01/31/25 11:30 01/31/25 11:30 01/31/25 11:15 01/31/25 11:38
MDM/Problems Addressed
Differential Diagnosis Includes:
Leg swelling: lymphedema, dependent edema, CHF, DVT considered less likely given bilateral swelling and symmetric
Palpitations: PVCs/PACs, atrial fibrillation
MDM/Problems Addressed:
84-year-old female presents for evaluation of leg swelling and occasional palpitations over the past few days. Recent treatment in ER for constipation and UTI and she is on Keflex currently. She does have a history of A-fib and sees Dr. William.
Will vital signs are normal here. EKG shows sinus rhythm with no ectopy. She had labs ordered in triage including a CBC and a CMP, troponin and proBNP�these are pending and we will follow-up. Will check chest x-ray. Check D-dimer although low
suspicion for DVT given symmetric swelling. Monitor closely on telemetry and reassess after the above.
Labs reviewed: CBC shows marginal anemia. CMP shows essentially stable creatinine 1.1. No electrolyte derangements. Troponin undetectable and proBNP only marginally elevated. Chest x-ray reviewed by me shows no signs of acute CHF. D-dimer was
slightly elevated so we will check ultrasound of the legs to rule out DVT.
DVT study negative bilaterally. Patient has been stable throughout ED stay. She has not had no events of A-fib on the monitor. I suspect her leg swelling is more dependent edema�nothing today to suggest that she has congestive heart failure. Her
episodic palpitations could be paroxysmal A-fib versus PACs versus anxiety�she says she has been stressed and anxious with her recent ER visits. At this point no clear indication for hospital admission I think she is stable for discharge however I
do think she should see cardiology expeditiously, may need repeat Holter monitor (previously had an implantable loop recorder which is no longer functioning). Patient feels comfortable to this plan. We spoke about conservative measures to help
with her leg swelling. All questions answered.
Chronic conditions affecting care:
Atrial fibrillation
*Radiology
Radiology exam reviewed: preliminary read by ED provider
*Pulse Oximetry
SaO2: 98
Oxygen Mode of Delivery: Room air
Patient hypoxic: no (98%)
*EKG
Interpreted by ED Provider?: Yes
Heart Rate: 62
Rate: normal
Rhythm: sinus
[place]: normal axis
Interval: normal interval
QRS Pattern: normal QRS
Ischemia: no ischemia
*Critical Care Note
Total Time (30-74mins, 75-104mins- exclusive of procedures): Not Applicable
Data Reviewed
Review of Other/Old Records Reveals: Labs and Records
Source: patient and records
ED Attending Note
-
Portions of this chart may have been created with voice recognition software.� Occasional wrong word or��sound alike� substitutions may have occurred due to the inherent limitations of voice recognition software.
Discharge Plan
Departure
Patient Disposition: Home (Routine Discharge)
Date of Disposition: 01/31/25
Time of Disposition: 13:36
Patient with high blood pressure during this ER visit?: No
Discharge Problem:
Leg edema, Palpitations
Instructions: Dependent Edema (DC), Chest Pain DCA Follow Up
Prescriptions:
No Action
atenolol 25 MG tablet
25 mg PO DAILY
citalopram 20 MG tablet
20 mg PO HS
quetiapine [Seroquel] 25 mg Tablet
25 mg PO HS PRN (Reason: sleep)
levothyroxine 125 mcg Tablet
125 mcg PO DAILY
cholecalciferol (vitamin D3) [Vitamin D3] 50 mcg (2,000 unit) Capsule
50 mcg PO DAILY
aspirin 325 mg Tablet
325 mg PO DAILY Qty: 30 0RF
Rx Instructions:
Take daily x4 weeks for blood clot prevention.
lorazepam 0.5 mg Tablet
0.5 mg PO BIDPRN PRN (Reason: muscle spasms) Qty: 10 0RF
Rx Instructions:
Caution with narcotics - can cause drowsiness.
Take only as directed.
docusate sodium 100 mg Capsule
100 mg PO BID Qty: 30 0RF
prochlorperazine maleate 5 mg Tablet
5 mg PO Q6HPRN PRN (Reason: nausea/vomiting) Qty: 30 0RF
lidocaine 4 % Adhesive Patch,Medicated
2 patch topical DAILY Qty: 30 0RF
Rx Instructions:
Over the counter. 12 hours on, 12 hours off.
Apply to sides of right knee/thigh.
sennosides [Mildred-mercedez] 8.6 mg Tablet
17.2 mg PO BID Qty: 30 0RF
acetaminophen 325 mg Tablet
650 mg PO Q4HPRN PRN (Reason: mild pain) Qty: 60 0RF
Rx Instructions:
DO NOT exceed >4000 mg daily while on Tylenol with Codeine.
1 Tylenol with Codeine tab = 300 mg of Tylenol.
acetaminophen-codeine 300-30 mg Tablet
1 - 2 tab PO Q4HPRN PRN (Reason: moderate-severe pain) Qty: 15 0RF
Rx Instructions:
1 tab for moderate pain, 2 if severe.
Dx total joint.
tramadol 50 mg Tablet
50 mg PO Q4HPRN PRN (Reason: mild pain) Qty: 15 0RF
Rx Instructions:
Dx total joint.
prednisone 10 mg tablet
30 mg PO TAPER Qty: 12 0RF
Rx Instructions:
3 TABS X 2 DAYS, 2 TABS X 2 DAYS, 1 TAB X 2 DAYS, THEN STOP
chlorthalidone 25 mg Tablet
12.5 mg PO DAILY Qty: 0 0RF
Rx Instructions:
HOLD IF systolic blood pressure <130 while on post-surgical narcotics.
omeprazole 40 MG capsule,delayed release(DR/EC)
40 mg PO DAILY Qty: 0 0RF
Rx Instructions:
Take daily while on post-surgical pain meds to reduce GI upset.
Can take 2nd dose if needed.
cephalexin 250 mg capsule
250 mg PO Q8H Qty: 14 0RF
phenazopyridine [Pyridium] 100 mg tablet
100 mg PO TID PRN (Reason: Pain) Qty: 14 0RF
Referrals:
Wilton William MD [Active, Cardiology] - Call in 1-3 days for appt
Wilton Johnston MD [Family Provider, Internal Medicine]
Activity Restrictions/Additional Instructions:
Thank you for visiting the Emergency Department at [facility].
1. Please schedule a follow up appointment as directed. Call first thing tomorrow morning to make an appointment.
2. If indicated, please take your medications as instructed and indicated on discharge paperwork.
3. If any of your symptoms do not improve, or persist, or become more severe within 6-12 hours, please return to the emergency department for further care.
4. Please return to the emergency department if you develop a headache, neck pain/stiffness, fever greater than 100.4F, chest pain, shortness of breath, persistent nausea, vomiting, slurred speech, difficulty walking, numbness/tingling, weakness,
signs of infection or any other symptoms that are worrisome to you.
Please call [phone] if you have any questions.
Interventions
Interventions:
*Risk Screen - Suicide Last Done: 01/31/25 10:43
*General Assessment Last Done: 01/31/25 10:57
*Neglect/Abuse Screening Last Done: 01/31/25 10:43
*ED- Fall Risk Assessment Last Done: 01/31/25 10:57
*ED COVID-19 Vaccine History Last Done: 01/31/25 10:57
ED- Cardiac Assessment Last Done: 01/31/25 11:34
ED- Pulmonary Assessment Last Done: 01/31/25 11:34
ED-Skin Assessment Last Done: 01/31/25 11:34
Discharge Date and Time
Print Language: MOROCCAN
[2025-01-31 11:43] LABS: ALT (SGPT) 14 U/L (0-35); AST (SGOT) 23 U/L (14-36); Albumin 4.3 g/dl (3.5-5.0); Alkaline Phosphatase 101 U/L (38-126); Blood Urea Nitrogen 17 mg/dl (7-17); Calcium 9.3 mg/dl (8.4-10.2); Carbon Dioxide 29 mmol/L (22-30); Chloride 102 mmol/L (98-107); Glucose 97 mg/dl (70-99); Potassium 3.6 mmol/L (3.5-5.1); Sodium 137 mmol/L (135-145); Total Protein 7.1 g/dl (6.3-8.2); eGFR 49.55
[2025-01-31 11:55] LABS: D-Dimer 1.68 ug/mlFEU (0.00-0.50)
[2025-01-31 12:20] LABS: Troponin I < 0.012 ng/ml
== END 2025-01-31 14:14 | disposition home or self-care (01) ==
LOC: EMR 10:31
PROVIDERS: Emergency Medicine; EMERGENCY PHYSICIAN Emergency Medicine; FAMILY PHYSICIAN Internal Medicine
DX: R60.0 Localized edema (principal); R00.2 Palpitations; I48.91 Unspecified atrial fibrillation; G89.29 Other chronic pain
CPT/HCPCS: 99285; 71046; 80053; 83880; 84484; 85025; 85379; 93005; 93970